=== PATIENT | male | born 1960 | race Caucasian/White ===

== ENCOUNTER 2024-10-05 08:06 | Outpatient (REF) | payer MEDICARE, SELFPAY ==
--- NOTE | ~2024-10-05 | XR_ITS ---
EXAMINATION: XR CHEST 2 VIEWS HISTORY: R05.9 - Cough, unspecified COMPARISON: There are no prior studies for comparison. FINDINGS: PA and lateral views of the chest are submitted. The lungs are expanded and clear. There is no pleural effusion, pneumothorax, or pulmonary vascular congestion. The heart is normal in size. There is mild degenerative disc disease of the spine. XR/XR chest 2V IMPRESSION: Clear lungs. Electronically signed by: Mejia Montana MD 10/05/2024 08:47 AM EDT
[2024-10-05 11:22] LABS: Influenza A PCR NEGATIVE (Negative); Influenza B PCR NEGATIVE (Negative); Resp Syncy Virus RNA Qual PCR NEGATIVE (Negative); SARS COV2 PCR INHOUSE NEGATIVE (Negative)
== END 2024-10-05 08:07 | disposition home or self-care (01) ==
LOC: HO.LAB 08:06
PROVIDERS: Visit Provider Physician Assistant
DX: J18.9 Pneumonia, unspecified organism (principal); R05.9 Cough, unspecified; R09.89 Other specified symptoms and signs involving the circulatory and respiratory systems
CPT/HCPCS: 0241U; 71046; 99202

== ENCOUNTER 2024-10-05 08:06 | Outpatient (AMB) | payer MEDICARE, SELFPAY ==
[2024-10-05 08:07] VITALS: BP 140/90; PULSE 113; TEMP 37.7; O2SAT 92
--- NOTE | 2024-10-05 08:07 | AM.OFFWIN_ITS ---
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 - Current remedies of Robitussin and Tyl enol have provided minimal relief. - He reports no gastrointestinal symptom s like nausea, vomiting, or diarrhea. - There is a history of allergies, affec ting the ears, but no history of smoking, asthma or COPD diagnosis. - He tested at home for Covid and it was negative. - who is with him is not sick. Physical Exam General: Cooperative, healthy appearing, comfortable and no acute distress Orientation/consciousness: Patient oriented x3 Limitations: No limitations Head: Normal to inspection Ears: Hearing grossly normal bilaterally, external ears normal and TM's normal bilaterally with some cerumen Nose: Normal external nose present, Normal nares present and No nasal discharge present Face and sinus: Normal facial exam and Yes sinuses nontender Mouth: Normal oral and palatal mucosa present and moist mucous membranes Throat: Yes tonsils normal, Yes uvula midline. Posterior oropharynx erythema Eyes: Appearance normal, both eyes and all related structures Neck: Normal visual inspection Respiratory: dim with coarse crackles. Normal respiratory effort, able to speak in complete sentences, no respiratory distress, not tachypneic, no tripod positioning and no use of accessory muscles Cardiovascular: tachycardic rate and regular rhythm. Normal S1 and S2 Skin: No rashes or lesions noted Neuro: Patient oriented x3 Extremities: Normal to inspection and Yes no clubbing, cyanosis or edema PFSH Social History Patient Tobacco Use Status: Never used Tobacco Review of Systems Const All systems reviewed & are unremarkable except as noted in HPI and below Physical Exam Vital Signs: Last Vital Signs Temp 99.9 F 10/05/24 08:07 Pulse 113 H 10/05/24 08:07 BP 140/90 H 10/05/24 08:07 Pulse Ox 94 10/05/24 08:07 Oxygen Delivery Method Room Air 10/05/24 08:07 Assessment & Plan Assessment & Plan (1) Lower respiratory infection (e.g., bronchitis, pneumonia, pneumonitis, pulmonitis): Code(s): J22 - Unspecified acute lower respiratory infection Plan: Pt tachy (regular), 92% on RA and appears well, PE remarkable for dim lungs with some coarse crackles. Will get CXR. A chest X-ray will be conducted to screen for pneumonia, and based on results, antibiotics might be prescribed. RSV, flu, and COVID tests are performed, with results guiding further care. Treatment for the acute respiratory illness includes initiating prednisone at 40 mg daily for five days to reduce inflammation and improve breathing. The patient should continue using Robitussin and Tylenol to manage congestion and fever. Hydration is crucial to address dehydration caused by fever, and an allergy pill with Flonase is recommended for persistent allergies. Until results are confirmed, avoiding contact with young children is advised due to RSV risks. Lack of antiviral initiation was explained considering timing and side effects, focusing on symptomatic relief. Pamphlet with care guidance and when to go to the ED was provided. Patient was informed and verbally consented to the use of an ambient scribe for clinic note documentation during this visit Orders: Orders SARS-CoV2/FLU/RSV Today R09.89 - Other specified symptoms and signs involving the circulatory and respiratory systems XR chest 2V Today R05.9 - Cough, unspecified Medications: New benzonatate 200 mg PO BEDTIME PRN 10 caps 0RF cough prednisone 40 mg (2 x 20 mg) PO QAM 10 tabs 0RF Coding Level of Care Code New Pt Level 4 (63087) Diagnoses Lower respiratory infection (e.g., bronchitis, pneumonia, pneumonitis, pulmonitis) J22
--- OUTSIDE RECORDS SUMMARY | 2024-10-05 08:16 | XMS_ITS | Clinical Summary ---
Author Organization [address] Address [address] [place] [address] Phone Care Team Providers Care [employer] Name Role Phone Kade Hernandez MD Primary Care Provider [phone] Allergies No known active allergies Medications lisinopriL (PRINIVIL,ZESTRI L) 5 mg tablet TAKE 1 TABLET BY MOUTH DAILY 90 tablet 1 06/25/2024 Active Active Problems Problem Noted Date Diagnosed Date Hyperglycemia 10/31/2023 Assessment & Plan (05/19/2024 10:45 AM EST): Orders: Basic metabolic panel; Future Hemoglobin A1c; Future Umbilical hernia without obstruction and without gangrene 10/31/2023 Overview (04/08/2024): s/p repaire with [facility] 09/2023 HTN (hypertension) 06/19/2012 Overview (04/08/2024): Stage 1 htn, diagnosed by ambulatory blood pressure monitor, with average blood pressure over the day 142/89, daytime blood pressure 144/92, nighttime blood pressure 134/79 Assessment & Plan (05/19/2024 10:45 AM EST): Hypercholesterolemia 12/06/2011 Assessment & Plan (05/19/2024 10:45 AM EST): Hepatic cyst 01/05/2010 Overview (04/08/2024): Hepatic ultrasound 2009: Multiple cysts are noted scattered throughout the liver, varying in size from 5 mm in diameter to a large septated cyst in the right lobe that measures 5.4 x 4.0 x 6.4 cm. No solid renal masses are seen. Small gallbladder polyps are noted. No gallstones are identified. The common duct is normal in caliber. The main portal vein, spleen, pancreas, abdominal aorta and both kidneys are unremarkable. IMPRESSION: Multiple liver cysts. Gallbladder polyps. LFTs abnormal 11/29/2009 Depressive disorder 08/23/2009 Immunizations Name Administration Dates Next Due Influenza trivalent, with pr eservative (Fluzone; Afluria) 6mo and older 04/11/2010 Moderna SARS-CoV-2 COVID-19, mRNA, LNP-S, preservative free 05/05/2022 Tdap Tetanus diptheria acell ular pertussis (Boostrix; Adacel) 7yo and older 02/15/2011 Surgical History Surgery Date Site/Laterality Comments COLONOSCOPY 04/19/11 PROCEDURE: HISTORICAL COLONOSCOPY; COMMENT: normal; repeat in ten yrs Medical History Medical History Date Comments Bipolar disorder 11/20/2009 DX:Bipolar diso rder (HCC) Hepatic cyst 01/05/2010 DX:Hepatic cyst Hypercholesterolemia 12/06/2011 DX:Hypercho lesterolemia HTN (hypertension) 06/19/2012 DX:HTN (hyper tension) Family History Medical History Relation Name Comments Other: smoker Father Heart attack Maternal Grandfather in his 60' Heart attack Paternal Grandmother in her 50', overweight Relation Name Status Comments Father Maternal Grandfather Paternal Grandmother Social History Tobacco Use Types Packs/Day Years Used Date Smoking Tobacco: Never Smokeless Tobacco: Never Tobacco Cessation:Counseling Given: Not Answered Alcohol Use Standard Drinks/Week Comments No 0 (1 standard drink = 0.6 oz pur e alcohol) Sex and Gender Information Value Date Recorded Sex Assigned at Not on file Legal Sex Male 12:20 AM EST Gender Identity Not on file Sexual Orientation Not on file Obstetrics History Last Filed Vital Signs Vital Sign Reading Time Taken Comments Blood Pressure 160/98 05/19/2024 9:19 AM EST Pulse 64 05/19/2024 9:19 AM EST Temperature 36.2 ??C (97.1 ??F) 05/19/2024 9:19 AM ES T Respiratory Rate 16 05/19/2024 9:19 AM EST Oxygen Saturation - - Inhaled Oxygen Concentration - - Weight 83.9 kg (185 lb) 05/19/2024 9:19 AM EST Height 175.3 cm (5' 9 ) 05/19/2024 9:19 AM EST Body Mass Index 27.32 05/19/2024 9:19 AM EST Plan of Treatment Upcoming Encounters Date Type Department Care Team (Late st Contact Info) Description 10/19/2024 8:30 AM EDT Office Visit Adult Medicine [facility] [address] [place] [id number] Kade Hernandez MD [address] [place] [address] Health Maintenance Due Date Last Done Comments Hepatitis A Vaccines (1 of 2 - Risk 2-dose series) 1977 Pneumococcal Vaccine: 50+ Years (1 of 2 - PCV) 1977 Zoster Vaccines (1 of 2) 2008 Hepatitis B Vaccines (1 of 3 - Risk 3-dose series) 2018 RSV Immunization Adult Patients (1 - Risk 60-74 years 1-dose series) 2018 DTaP,Tdap,and Td Vaccines (2 - Td or Tdap) 02/15/2021 02/15/2011 Colorectal Cancer Screening: Colonoscopy 06/02/2022 Medicare Annual Wellness Visit 06/02/2022 Social Influencers of Health Screening 06/02/2022 COVID-19 Vaccine ( season) 2024 04/16/2023, 05/05/2022, 12/29/2021, Additional history exists Influenza Vaccine (#1) 2024 , 05/05/2022, 05/01/2021, Additional history exists Hypertension/CHF/CAD Annual BMP Blood Test 10/26/2024 10/27/2023, 10/27/2023 Depression Screening 05/19/2025 05/19/2024 Falls Risk Assessment 05/19/2025 05/19/2024 Cholesterol Screening (Lipid Panel) 05/17/2029 05/17/2024, 10/27/2023, 10/27/2023 Hepatitis C Screening Completed 11/21/2009 HIB Vaccines Aged Out No longer eligi ble based on patient's age to complete this topic HPV Vaccines Aged Out No longer eligi ble based on patient's age to complete this topic IPV Vaccines Aged Out No longer eligi ble based on patient's age to complete this topic MMR Vaccines Aged Out No longer eligi ble based on patient's age to complete this topic Meningococcal ACWY Vaccine Aged Out N o longer eligible based on patient's age to complete this topic Meningococcal B Vaccine Aged Out No l onger eligible based on patient's age to complete this topic RSV Immunization Patients Under 20 months Aged Out No longer eligible based on patient's age to complete this topic Varicella Vaccines Aged Out No longer eligible based on patient's age to complete this topic Procedures Procedure Name Priority Date/Time Associated Diagnosis Comments LIPID PANEL WITH REFLEX TO DIRECT LDL Routine 05/17/2024 9:39 AM EST Pure hypercholesterolemia ANNUAL BMP BLOOD TEST Routine 10/27/2023 HEPATITIS C SCREENING Routine 11/21/2009 from Last 3 Months or Most Recently Relevant to Health Maintenance Results * (ABNORMAL) Lipid panel with reflex to direct LDL (05/17/2024 9:39 AM EST) Cholesterol 250(H) 0 - 200 mg/dL LAB CHEMISTRY METHOD 05/17/2024 2:54 PM EST [facility] Triglycerides 221(H) 0 - 150 mg/dL LAB CHEMISTRY METHOD 05/17/2024 2:54 PM EST [facility] HDL 57 >=40 mg/dL LAB CHEMISTRY METHOD 05/17/2024 2:54 PM EST [facility] LDL Calculated 149(H) 0 - 100 mg/dL LAB CHEMISTRY METHOD 05/17/2024 2:54 PM EST [facility] VLDL Cholesterol Sohail 44.2 mg/dL LAB CHEMISTRY METHOD 05/17/2024 2:54 PM EST [facility] Non HDL Chol. (LDL+VLDL) 193(H) <145 mg/dL LAB CHEMISTRY METHOD 05/17/2024 2:54 PM EST [facility] Chol/HDL Ratio 4.4 0.0 - 4.4 LAB CHEMISTRY METHOD 05/17/2024 2:54 PM EST [facility] Blood Venous blood specimen / Unknown Venipuncture / Unknown 05/17/2024 9:39 AM EST 05/17/2024 9:39 AM EST Kade Hernandez MD LAB BLOOD ORDERABLES Final Resul t [facility] [address] [place] [address], * Annual BMP Blood Test (10/27/2023) Annual BMP Blood Test abstracted Historical Provider HEALTH MAINTENANCE Final Result * Hepatitis C Screening (11/21/2009) Hepatitis C Screening abstracted Historical Provider HEALTH MAINTENANCE Final Result from Last 3 Months or Most Recently Relevant to Health Maintenance Insurance [employer] Care Teams [employer] Relationship Specialty Start Date End Date Kade Hernandez MD [address] [place] [phone] PCP - General 12/04/10
== END 2024-10-05 08:39 | disposition home or self-care (01) ==
PROVIDERS: Visit Provider Physician Assistant
DX: J22 Unspecified acute lower respiratory infection (principal)

== ENCOUNTER → 2024-10-05 08:38 | Outpatient (BNV) | payer MEDICARE, SELFPAY | PROVIDERS: Visit Provider Radiology Diagnostic Radiology | DX: R05.9 Cough, unspecified (principal) | CPT/HCPCS: 71046 ==